=== PATIENT | female | born 1975 | race Caucasian/White ===

== ENCOUNTER 2018-08-23 09:27 | Emergency (ER) | payer MEDICAID ==
[~2018-08-23] VITALS: Wt 81.0 kg
[~2018-08-23 09:27] MED LIST: CEPH-443 PO; IBUP-1561 PO; PREN1TAB49 PO
[2018-08-23 09:37] VITALS: BP 160/89; PULSE 85; RESP 18
[2018-08-23] MEDS ORDERED: IBUP-1542 PO (10:28)
[2018-08-23] MEDS ORDERED: IBUPROFEN 600 MG TAB PO ONE (10:30)
--- NOTE | 2018-08-23 14:10 | ERD ---
ER Documentation Chief Complaint Chief Complaint BURCIAGA AFTER OBJECT FELL ON HER HEAD, NO KO HPI This is a 42-year-old woman complaining of left upper scalp pain after a cardboard box fell onto her head from about 1 foot higher than the top of her head. She denies neck pain and complains of mild scalp pain but no headache, no blurry vision, no chest pain or shortness of breath ROS All systems reviewed and are negative except as per history of present illness. Medications Home Meds Active Scripts Ibuprofen* (Motrin*) 600 Mg Tab, 600 MG PO Q8 PRN for PAIN AND/OR INFLAMMATION, #30 TAB Prov:MONET MILLER MD 08/23/18 Cephalexin* (Keflex*) 500 Mg Capsule, 500 MG PO QID for 7 Days, CAP Prov:TESSIE REGAN PA-C 12/27/15 Ibuprofen* (Motrin*) 400 Mg Tab, 400 MG PO Q6, #30 TAB Prov:TESSIE REGAN PA-C 12/27/15 Reported Medications Vits W-Ca,Fe,Fa(<1MG) () 1 Tab Tablet, 1 TAB PO DAILY 07/21/12 Allergies Allergies: Coded Allergies: No Known Drug Allergies (Verified Allergy, Unknown, 08/23/18) PMhx/Soc Medical and Surgical Hx: pt denies Medical Hx, pt denies Surgical Hx Physical Exam Vitals Vital Signs Date Temp Pulse Resp B/P (MAP) Pulse Ox O2 O2 Flow FiO2 Time Delivery Rate 08/23/18 98.1 85 18 160/89 99 09:37 (112) Physical Exam GENERAL: Well-developed, well-nourished, well-hydrated, in no apparent distress, looks nontoxic in appearance HEENT: Moist mucous membranes, pink conjunctiva, no cervical spine tenderness or step-off deformities, no goiter, no jaundice or icterus, extraocular movements intact without pain. No submandibular induration, and no pharyngeal erythema NEURO: Alert and oriented 3, cranial nerves II through XII intact bilaterally, pupils equal round reactive to light, no focal deficits or facial asymmetry, sensation intact distally Strength 5/5 in upper and lower extremities bilaterally SKIN: Warm and dry to touch, no abrasions, contusions, or hematomas, no lacerations, no ecchymosis, no target lesions, and without ulcers EXTREMITIES: No clubbing cyanosis or edema, calves are bilaterally symmetrical, no Homans sign, no popliteal cord sign. Distal pulses equal and bilateral PSYCH: Normal affect without agitation or irritability Results 24 hrs Current Medications Medications Dose Sig/Rohith Start Time Status Last (Trade) Ordered Route PRN Stop Time Admin Dose Reason Admin Ibuprofen 600 mg ONCE ONCE 08/23/18 DC 08/23/18 (Motrin) PO 10:30 08/23/18 10:32 10:31 Procedures/MDM I administered ibuprofen 600 mg p.o. x1. Patient had no neurologic deficits, no cervical spine tenderness or deformity, no complaints of neck pain or headache. Mechanism was extremely mild and she will be discharged with instructions. Patient feels much better at this time, and vital signs are normal, symptoms have improved. I did give strict instructions to return to the ED if symptoms continue or worsen, patient will otherwise follow-up with primary care physician. Patient understood instructions and agreed to plan. Disclaimer: Inadvertent spelling and grammatical errors are likely due to EHR/dictation software use and do not reflect on the overall quality of patient care. Also, please note that the electronic time recorded on this note does not necessarily reflect the actual time of the patient encounter. Departure Diagnosis: Primary Impression: Scalp contusion Encounter type: initial encounter Qualified Codes: S00.03XA - Contusion of scalp, initial encounter Ruled Out: Headache Condition: Good Patient Instructions: Scalp Contusion, No Wake Up MONET MILLER MD August 23, 2018 14:10
== END 2018-08-23 11:02 | disposition home or self-care (01) ==
LOC: FTE 09:27
DX: S00.03XA Contusion of scalp, initial encounter (principal); W20.8XXA Other cause of strike by thrown, projected or falling object, initial encounter; Y92.9 Unspecified place or not applicable
CPT/HCPCS: Z7502; Z7610; 99283

== ENCOUNTER 2018-10-27 15:49 | Emergency (ER) | payer MEDICAID ==
[~2018-10-27] VITALS: Ht 149.9 cm; Wt 74.0 kg
[~2018-10-27 15:49] MED LIST changes: +IBUP-1542 PO
[2018-10-27 15:58] VITALS: Ht 149.9 cm; Wt 74.0 kg
--- NOTE | 2018-10-27 18:17 | EN ---
Date/Time of Note Date/Time of Note DATE: 10/27/18 TIME: 18:16 ER Progress Note 43-year-old female, with history of gastritis, presents complaining of epigastric pain. Vital signs are stable, patient is stable to go to ED to, I will start work-up in triage area. ZECHARIAH MELISSA MD Oct 27, 2018 18:17
[2018-10-27] MEDS ORDERED: SOD CHLORIDE 0.9% 1,000 ML IV STA (19:26)
[2018-10-27] MEDS ORDERED: KETOROLAC 15 MG INJ IV STA (19:26)
[2018-10-27] MEDS ORDERED: FAMOTIDINE 20 MG INJ IV STA (19:26)
[2018-10-27] MEDS ORDERED: ONDANSETRON 4 MG INJ IV STA (19:26)
--- NOTE | 2018-10-27 19:32 | ERD ---
ER Documentation Chief Complaint Chief Complaint pt is bib self with c/o headache, vomiting and abd pain for a few days HPI This is a 43-year-old Wol[place] speaking female with history of cholecystectomy presents to the ED complaining of midepigastric abdominal pain x4 days. She states pain is burning in sensation and is worse with food intake. She has not been taking any medications for this. Pain is moderate in quality, sharp and burning, and localized to her mid epigastric and right upper quadrant region. No history of similar pain. She does report some associated nausea, no vomiting. No chest pain or shortness of breath. No urinary symptoms. No fevers. ROS All systems reviewed and are negative except as per history of present illness. Medications Home Meds Active Scripts Cephalexin* (Keflex*) 500 Mg Capsule, 500 MG PO BID for 7 Days, CAP Prov:HAILEYIGRAVAANSELMA PA-C 10/27/18 Famotidine* (Pepcid*) 20 Mg Tablet, 20 MG PO BID, #20 TAB Prov:SELMA GUTIERREZ PA-C 10/27/18 Ibuprofen* (Motrin*) 600 Mg Tab, 600 MG PO Q8 PRN for PAIN AND/OR INFLAMMATION, #30 TAB Prov:MONET MILLER MD 08/23/18 Cephalexin* (Keflex*) 500 Mg Capsule, 500 MG PO QID for 7 Days, CAP Prov:TESSIE REGAN PA-C 12/27/15 Ibuprofen* (Motrin*) 400 Mg Tab, 400 MG PO Q6, #30 TAB Prov:TESSIE REGAN PA-C 12/27/15 Reported Medications Vits W-Ca,Fe,Fa(<1MG) () 1 Tab Tablet, 1 TAB PO DAILY 07/21/12 Allergies Allergies: Coded Allergies: No Known Drug Allergies (Verified Allergy, Unknown, 08/23/18) PMhx/Soc History of Surgery: Yes () Anesthesia Reaction: No Hx Alcohol Use: No Hx Substance Use: No Hx Tobacco Use: No Smoking Status: Never smoker FmHx Family History: No diabetes Physical Exam Vitals Vital Signs Date Temp Pulse Resp B/P (MAP) Pulse Ox O2 O2 Flow FiO2 Time Delivery Rate 10/27/18 97.8 69 18 129/77 97 Room Air 22:13 (94) 10/27/18 98.3 84 18 128/65 98 15:58 (86) Physical Exam Const: No acute distress Head: Atraumatic Eyes: Normal Conjunctiva ENT: Normal External Ears, Nose and Mouth. Neck: Full range of motion. No meningismus. Resp: Clear to auscultation bilaterally Cardio: Regular rate and rhythm, no murmurs Abd: Soft, + mid epigastric and right upper quadrant tenderness palpation, + Werner's, no rebound, no guarding, non distended. Normal bowel sounds Skin: No petechiae or rashes Back: No midline or flank tenderness Ext: No cyanosis, or edema Neur: Awake and alert Psych: Normal Mood and Affect Result Diagram: 10/27/18181410/27/181814 Results 24 hrs Laboratory Tests Test 10/27/18 18:15 10/27/18 18:45 10/27/18 18:59 White Blood Count 6.7 10^3/ul Red Blood Count 4.97 10^6/ul Hemoglobin 14.1 g/dl Hematocrit 42.4 % Mean Corpuscular Volume 85.3 fl Mean Corpuscular Hemoglobin 28.4 pg Mean Corpuscular 33.3 g/dl Hemoglobin Concent Red Cell Distribution Width 13.2 % Platelet Count 284 10^3/UL Mean Platelet Volume 9.3 fl Neutrophils % 73.0 % Lymphocytes % 19.7 % Monocytes % 5.5 % Eosinophils % 1.0 % Basophils % 0.0 % Nucleated Red Blood Cells % 0.0 /100WBC Neutrophils # 4.9 10^3/ul Lymphocytes # 1.3 10^3/ul Monocytes # 0.4 10^3/ul Eosinophils # 0.1 10^3/ul Basophils # 0.0 10^3/ul Nucleated Red Blood Cells # 0.0 10^3/ul Sodium Level 141 mmol/L Potassium Level 4.1 mmol/L Chloride Level 106 mmol/L Carbon Dioxide Level 25 mmol/L Anion Gap 10 Blood Urea Nitrogen 9 mg/dl Creatinine 0.57 mg/dl Est Glomerular Filtrat > 60 mL/min Rate mL/min Glucose Level 145 mg/dl Calcium Level 9.3 mg/dl Total Bilirubin 0.6 mg/dl Direct Bilirubin 0.00 mg/dl Indirect Bilirubin 0.6 mg/dl Aspartate Amino Transf (AST/SGOT) 31 IU/L Alanine 23 IU/L Aminotransferase (ALT/SGPT) Alkaline Phosphatase 87 IU/L Total Protein 8.8 g/dl Albumin 4.7 g/dl Globulin 4.10 g/dl Albumin/Globulin Ratio 1.14 Lipase 123 U/L Urine Color STRAW Urine Clarity CLEAR Urine pH 6.0 Urine Specific [place] 1.006 Urine Ketones NEGATIVE mg/dL Urine Nitrite NEGATIVE mg/dL Urine Bilirubin NEGATIVE mg/dL Urine Urobilinogen NEGATIVE mg/dL Urine Leukocyte Esterase 3+ Yusuf/ul Urine Microscopic RBC 1 /HPF Urine Microscopic WBC 5 /HPF Urine Squamous Epithelial Cells FEW /HPF Urine Bacteria FEW /HPF Urine Hemoglobin NEGATIVE mg/dL Urine Glucose NEGATIVE mg/dL Urine Total Protein NEGATIVE mg/dl Urine Test NEGATIVE POC Beta HCG, Qualitative NEGATIVE Current Medications Medications Dose Sig/Rohith Start Time Status Last (Trade) Ordered Route PRN Stop Time Admin Dose Reason Admin Sodium 1,000 ml @ Q1H STAT 10/27/18 DC 10/27/18 Chloride 1,000 mls/hr IV 19:26 19:41 10/27/18 20:25 Ondansetron 4 mg ONCE STAT 10/27/18 DC 10/27/18 HCl (Zofran IV 19:26 19:40 Inj) 10/27/18 19:28 Famotidine 20 mg ONCE STAT 10/27/18 DC 10/27/18 (Pepcid Iv) IV 19:26 19:41 10/27/18 19:28 Ketorolac 15 mg ONCE STAT 10/27/18 DC 10/27/18 Tromethamine IV 19:26 19:42 (Toradol) 10/27/18 19:28 Procedures/MDM LABS & DIAGNOSTIC IMAGING: CBC: no e/o of systemic infection or severe anemia CMP: no e/o severe acidosis, alkalosis, renal failure, diabetic ketoacidosis, liver disease The patient's lipase is normal and indicative of no pancreatitis. Urine: 3 + Leuk esterase hcg: neg PROCEDURE: Abdominal ultrasound, limited. CLINICAL INDICATION: Abdominal pain. TECHNIQUE: Multiple real-time images were acquired of the patient's right upper abdomen utilizing a high resolution transducer. COMPARISON: None FINDINGS: The liver demonstrates normal echogenicity and size measuring 14.2 cm. There is no focal mass or intrahepatic biliary ductal dilatation. The portal vein is patent. The gallbladder is not distended. No gallstones are identified. There is no pericholecystic fluid or gallbladder wall thickening. The common bile duct measures 3.3 mm in maximal dimension. The visualized portions of the pancreas are unremarkable. The pancreas is partially obscured by overlying bowel gas. No free fluid is identified. The right kidney is normal size and echogenicity measuring 9.6 cm. There is no focal renal mass or echogenic calculus identified. There is no obstructive ur opathy. IMPRESSION: Unremarkable right upper abdominal ultrasound. ED COURSE: The patient was given IV fluids, Zofran, Toradol, Pepcid The medication was well tolerated and the patient had market improvement in symptoms. The patient remained stable throughout ED course. MEDICAL DECISION MAKING: This is a 43-year-old female who presents with mid epigastric abdominal pain. Ultrasound is negative for gallstones. I have low suspicion for cholecystitis or cholelithiasis. I have low suspicion for OH/ACS, AAA or pancreatitis. Her abdominal exam is benign without evidence of peritonitis. Patient symptoms improved after Zofran and Pepcid, her symptoms are likely related to gastritis versus GERD. Patient does have evidence of UTI on UA, therefore we will treat with antibiotics. She has no evidence of severe dehydration, pyelonephritis or sepsis. Recommended PCP follow-up and strict return precautions. PRESCRIPTIONS: Keflex, Pepcid SPECIALIST FOLLOW UP RECOMMENDED: None Patient has been advised to follow up with primary care in 1-2 days. Departure Diagnosis: Primary Impression: UTI (urinary tract infection) Urinary tract infection type: acute cystitis Hematuria presence: without hematuria Qualified Codes: N30.00 - Acute cystitis without hematuria Additional Impression: Gastritis Gastritis type: unspecified gastritis Chronicity: acute Gastritis bleeding: without bleeding Qualified Codes: K29.00 - Acute gastritis without bleeding Condition: Stable SELMA GUTIERREZ PA-C Oct 27, 2018 19:32
[2018-10-27] MEDS ORDERED: KETOROLAC 15 MG INJ ONE (19:38)
[2018-10-27] MEDS ORDERED: ONDANSETRON 4 MG INJ ONE (19:38)
[2018-10-27] MEDS ORDERED: FAMOTIDINE 20 MG INJ ONE (19:38)
[2018-10-27] MEDS ORDERED: FAMO-96 PO (21:56)
[2018-10-27] MEDS ORDERED: CEPH-443 PO (21:56)
[2018-10-27 22:13] VITALS: BP 129/77; PULSE 69; RESP 18
== END 2018-10-27 22:14 | disposition home or self-care (01) ==
LOC: FTE 15:49
DX: R10.13 Epigastric pain (principal); R10.11 Right upper quadrant pain; R11.2 Nausea with vomiting, unspecified
CPT/HCPCS: 76705; 80053; 81001; 81025; 83690; 84703; 85025; J7030; 36415; 96361; 96374; 96375; J1885; J2405

== ENCOUNTER 2019-02-18 08:37 | Emergency (ER) | payer MEDICAID ==
[~2019-02-18] VITALS: Ht 139.7 cm; Wt 65.0 kg
[~2019-02-18 08:37] MED LIST changes: +FAMO-96 PO; +MECL12.574 PO
[2019-02-18 08:40] VITALS: Ht 139.7 cm; Wt 65.0 kg
[2019-02-18] MEDS ORDERED: ONDANSETRON 4 MG INJ IV STA (09:20)
[2019-02-18] MEDS ORDERED: SOD CHLORIDE 0.9% 1,000 ML IV STA (09:20)
[2019-02-18] MEDS ORDERED: MECLIZINE 12.5 MG TAB PO ONE (09:30)
[2019-02-18 13:33] VITALS: BP 118/60; PULSE 76; RESP 20
== END 2019-02-18 13:39 | disposition home or self-care (01) ==
LOC: E/R 08:37
DX: R42 Dizziness and giddiness (principal); R40.2142 Coma scale, eyes open, spontaneous, at arrival to emergency department; R40.2252 Coma scale, best verbal response, oriented, at arrival to emergency department; R40.2362 Coma scale, best motor response, obeys commands, at arrival to emergency department
CPT/HCPCS: 36415; 80053; 81001; 81025; 83690; 85025; 96361; 96374; 96375; J2405; J7030; Z7502; Z7610